=== PATIENT | female | born 1955 | race Two or more races ===

== ENCOUNTER 2018-12-23 08:24 | Emergency (ER) | payer OTHER ==
[~2018-12-23] VITALS: Ht 152.4 cm; Wt 74.8 kg
[2018-12-23 08:37] VITALS: BP 133/89
--- NOTE | 2018-12-23 08:41 | NUR ---
patient presented to the ER c/o LLE, lower back, and head pain x 10 days, took tylenol and motrin and doesn't work. On room air, breaething evenly and unlabored. kept comfortable. will continue to monitor accordingly.
[2018-12-23] MEDS ORDERED: KETOROLAC TROMETHAMINE INJ 60 MG/2 ML VIAL IM ONE (09:00)
[2018-12-23] MEDS ORDERED: MORPHINE SULFATE INJ 2 MG/ML DISP.SYRIN IM ONE (09:00)
[2018-12-23] MEDS ORDERED: KETOROLAC TROMETHAMINE INJ 30 MG/ML VIAL ONE ×2 (09:07→09:11)
[2018-12-23] MEDS ORDERED: MORPHINE SULFATE INJ 4 MG/ML DISP.SYRIN ONE (09:08)
== END 2018-12-23 10:02 | disposition home or self-care (01) ==
LOC: ER 08:24
DX: M79.10 Myalgia, unspecified site (principal)
CPT/HCPCS: 96372 ×2; 99283; J1885 ×2; J2270